=== PATIENT | male | born 1975 | race Caucasian/White ===

== ENCOUNTER 2020-05-31 08:00 | Outpatient (CLI) | payer OTHER ==
--- NOTE | 2020-06-01 14:08 | XRAY Report ---
PROCEDURE: Ribs w/PA Chest RT INDICATIONS: RIGHT SIDED RIB PAIN TECHNIQUE: 3 views of the right ribs were acquired, along with a single view chest. COMPARISON: None. FINDINGS: Surgical changes and devices: None. Bones and chest wall: No fractures or dislocations. No suspicious bony lesions. Overlying soft tis sues appear unremarkable. Lungs and pleura: No pleural effusions or pneumothorax. Lungs appear clear. Mediastinum: Mediastinal contours appear normal. Heart size is normal. IMPRESSION: Chest without acute cardiopulmonary abnormalities. No acute, displaced rib fractures visualized. Reviewed by: Robby Abrams MD on 06/01/2020 1:07 PM [facility] Approved by: Robby Abrams MD on 06/01/2020 1:07 PM [facility] Station ID: [id number]
== END 2020-05-31 23:59 | disposition home or self-care (01) ==
LOC: DI.S 08:00
PROVIDERS: ATTEND Physician Assistant
DX: R07.81 Pleurodynia (principal)

== ENCOUNTER 2022-06-05 10:45 | Outpatient (CLI) | payer OTHER ==
--- NOTE | 2022-06-05 16:43 | XRAY Report ---
PROCEDURE: Finger(s) RT INDICATIONS: INJURY OF FINGERS - RIGHT TECHNIQUE: AP hand, 2 views of the third finger(s) acquired. COMPARISON: None. FINDINGS: Bones: No fractures or dislocations. No suspicious bony lesions. Soft tissues: No suspicious soft tissue calcifications or masses. IMPRESSION: Unremarkable radiographic examination of right hand and right third finger. Reviewed by: Mahin Lr MD on 06/05/2022 4:42 PM PDT Approved by: Mahin Lr MD on 06/05/2022 4:42 PM PDT Station ID: [id number]
== END 2022-06-05 10:46 | disposition home or self-care (01) ==
LOC: DI.S 10:45
PROVIDERS: ATTEND Physician Assistant
DX: S69.91XA Unspecified injury of right wrist, hand and finger(s), initial encounter (principal)